=== PATIENT | female | born 1950 | race Caucasian/White ===

== ENCOUNTER → 2016-05-05 | Outpatient (CLI) | payer OTHER ==
--- NOTE | 2016-05-05 10:42 | MA ---
Bilateral Screening Digital Mammograms With iCAD Clinical Indications: Routine screening mammograms. Technique: Standard digital cephalocaudal and mediolateral oblique projections were obtained. [facility]. Comparison: 2014, 2010. Breast density: 3: 50 to 75%. Findings: Computer-aided detection was reviewed. In the left breast medial aspect approximately 9 o'c lock position, there is a focal asymmetry for which spot compression views are recommended. Right binu ast demonstrates no new dominant densities, suspicious microcalcifications, or architectural distorti on. Benign vascular calcifications in both breasts. Impression: 1. ACR BI-RADS 0: Needs further imaging. 2. Focal asymmetry in medial left breast. Recommendation: Additional diagnostic spot compression mammographic views of the left breast medial aspect and possibly ultrasound if the finding persists. [facility] will send a result letter to the patient.
--- NOTE | 2016-05-06 08:14 | DX ---
Bone Densitometry Indication: Osteoporosis. Technique: DEXA scan was performed on [employer] W Bone Densitometer. Comparison Study: March 13, 2015. Results: Lumbar Spine (L1-L4) BMD: 0.841 T-score: -1.9 Prior BMD: 0.880 Percent change: -4.4% Total Hip (Right) BMD: 0.701 T-score: -2.0 Prior BMD: 0.721 Percent change: -2.8% Femoral Neck (Right) BMD: 0.572 T-score: -2.5 Total Hip (Left) BMD: 0.809 T-score: -1.1 Prior BMD: 0.788 Percent change: 2.7% Femoral Neck (Left) BMD: 0.644 T-score: -1.8 Forearm (Left) BMD: 0.542 T-score: -0.4 Conclusion: Osteoporosis based on the bone density of the right femoral neck. In comparison to the previous study from March 2015, there has been a significant decrease in the patient's measured BMD of the lumbar spine. There has also been a decrease in the measured BMD of the right hip, however, this change is not significant. There has been an increase in BMD of the left hi p. This change is not significant. Additional Comments: 1. By FRAX calculation, the estimated 10-year risk of any major osteoporotic fracture is 12%. The es timated 10-year risk of hip fracture is 2.7%. 2. This patient meets the National Osteoporosis Foundation guidelines for further management and mark tment of osteoporosis. 3. Consider repeating this study in 2 years or as clinically indicated. NOTE: The risk of osteoporotic fracture increases approximately two-fold for each 1.0 SD decrease in T-score. The T-score represents the standard deviations from a young normal, same sex, reference po pulation. Low bone density is not the only risk factor for fracture. Clinical factors to consider include fall risk, previous osteoporotic fracture, family history of fractures, smoking, and low body weight. Patients who have an unexpectedly low BMD may need to be evaluated for secondary causes of low bone m ineral density. In comparing the present study to a prior study, lack of a significant increase or decrease in BMD ma y signify efficacy of the patient's present treatment. Bone mineral density measurements performed with densitometers produced by different manufacturers ar e not comparable. For the most reproducible BMD measurement, subsequent exams should be performed on the same densitometer.
== END ==
LOC: BMCIMAGING 09:47
DX: Z12.31 Encounter for screening mammogram for malignant neoplasm of breast (principal); M81.0 Age-related osteoporosis without current pathological fracture
CPT/HCPCS: G0202

== ENCOUNTER → 2016-05-14 | Outpatient (CLI) | payer OTHER ==
--- NOTE | 2016-05-14 13:31 | MA ---
Diagnostic Digital Mammogram Left Breast With iCAD Analysis Reason for examination: Evaluate possible developing asymmetry noted in the mid posterior left breast on the screening study May 05, 2016. Technique: Oblique and craniocaudal spot compression views are obtained. Also, a true lateral is perf ormed. The examination is processed by the iCAD computer-aided detection system. Comparison to older studies dating back to July 2010. Findings: The abnormality does not persist on diagnostic evaluation and it was probably related to sanchez perimposition of normal glandular elements on the screening study. The appearance of the left breast on diagnostic assessment is unchanged compared to the older studies. Vascular calcifications are noted. Impression: Negative diagnostic mammography. BI-RADS: 1. Recommendation: Resume routine mammographic screening in one year as long as physical examination is negative. A verbal report was given to the patient. [facility] with send a result letter.
== END ==
LOC: BMCIMAGING 12:49
PROVIDERS: ATTEND Internal Medicine
DX: Z03.89 Encounter for observation for other suspected diseases and conditions ruled out (principal)
CPT/HCPCS: G0206

== ENCOUNTER → 2017-12-22 | Outpatient (CLI) | payer OTHER | LOC: FIMAGING 14:33 | PROVIDERS: ATTEND Radiology Diagnostic Radiology | DX: Z01.818 Encounter for other preprocedural examination (principal); I83.90 Asymptomatic varicose veins of unspecified lower extremity ==

== ENCOUNTER → 2018-02-14 | Outpatient (CLI) | payer OTHER | LOC: BMCIMAGING 10:02 | PROVIDERS: ATTEND Internal Medicine | DX: N60.12 Diffuse cystic mastopathy of left breast (principal) ==

== ENCOUNTER 2018-03-18 11:04 | Day surgery (SDC) | payer OTHER ==
--- NOTE | 2018-03-18 12:27 | PDGENHP ---
History & Physical Chief Complaint: BILATERAL VARICOSE VEINS History of Present Illness: PAIN AND SWELLING Pertinent Past, Social, Family History: NON SMOKER Relevant Physical Exam: NO PAIN. Cardiorespiratory Assessment: RRR, CTA
--- NOTE | 2018-03-18 12:27 | PDPROPOC ---
Sedation Plan of Care Sedation Plan of Care: vital signs stable, mental status noted, patient educated of risks, benefits, alternatives, patient can tolerate sedation ASA Classification: ASA 2 Planned drugs: fentanyl, midazolam Mallampati Score: Class 1 Mallampati Reference Image: Patient passed 3-3-2 rule?: Yes
[2018-03-18] MEDS ORDERED: NS 1,000 ML IV ONE (12:34)
[2018-03-18] MEDS ORDERED: NALOXONE HCL 0.4 MG/ML INJ IVP PRN (12:34)
[2018-03-18] MEDS ORDERED: FLUMAZENIL 0.5 MG/5 ML MDV IVP PRN (12:34)
[2018-03-18] MEDS ORDERED: ceFAZolin 2 GM/DEXTROSE 100 ML IV ONE (12:34)
[2018-03-18] MEDS ORDERED: fentaNYL 100 MCG/2 ML INJ IVP PRN (12:34)
[2018-03-18] MEDS ORDERED: ONDANSETRON 4 MG/2 ML VIAL IVP ONE (12:34)
[2018-03-18] MEDS ORDERED: MIDAZOLAM 2 MG/2 ML VIAL IVP PRN (12:34)
[2018-03-18] MEDS ORDERED: fentaNYL 100 MCG/2 ML INJ ONE ×2 (12:40→13:45)
[2018-03-18] MEDS ORDERED: NALOXONE HCL 0.4 MG/ML INJ ONE (12:40)
[2018-03-18] MEDS ORDERED: FLUMAZENIL 0.5 MG/5 ML MDV IVP ONE (12:40)
[2018-03-18] MEDS ORDERED: CEFAZOLIN 2 GM/DEXTROSE/100 ML BAG IV ONE (12:40)
[2018-03-18] MEDS ORDERED: MIDAZOLAM 2 MG/2 ML VIAL ONE ×2 (12:40→13:45)
[2018-03-18] MEDS ORDERED: LIDO/EPI 1% **for epidural** 30 ML SDV ONE (13:20)
[2018-03-18] MEDS ORDERED: SODIUM TETRADECYL SULFATE 3% 2 ML VIAL IV ONE (13:20)
[2018-03-18] MEDS ORDERED: HYDROCODONE/APAP 5/325 TAB PO PRN (14:40)
[2018-03-18] MEDS ORDERED: IBUPROFEN 200 MG TAB PO ONE (14:40)
[2018-03-18] MEDS ORDERED: ONDANSETRON 4 MG/2 ML VIAL IVP PRN (14:40)
[2018-03-18] MEDS ORDERED: ONDANSETRON DISINTEGRATING 4 MG TAB PO PRN (14:40)
--- NOTE | 2018-03-18 14:40 | PDRADPN ---
Radiology Procedure Note Date of Procedure: 03/18/18 Radiologist: Bernice Dominguez Anesthesia: IV Sedation Pre-op Diagnosis: RLE VARICOSE VEINS Post-op Diagnosis: SAME Indication: PAIN AND SWELLING Procedure: SCLEROTHERAPY AND PHLEBECTOMY Inf/Abcess present in the surg proc area at time of surgery?: No
[2018-03-18] MEDS ORDERED: NS 1,000 ML IV SCH (14:45)
[2018-03-18 17:58] VITALS: BP 106/65
== END 2018-03-18 17:58 | disposition home or self-care (01) ==
LOC: FIMAGING 11:04
PROVIDERS: ATTEND Radiology Diagnostic Radiology
PROC: 3E033TZ Introduction of Destructive Agent into Peripheral Vein, Percutaneous Approach (ICD-10-PCS; 2018-03-18)
PROC: 3E033TZ Introduction of Destructive Agent into Peripheral Vein, Percutaneous Approach (ICD-10-PCS; 2018-03-18)
PROC: 06DY3ZZ Extraction of Lower Vein, Percutaneous Approach (ICD-10-PCS; principal; 2018-03-18 14:45)
DX: I83.813 Varicose veins of bilateral lower extremities with pain (principal); I83.893 Varicose veins of bilateral lower extremities with other complications
CPT/HCPCS: J0690; J2250; J2310; J3010

== ENCOUNTER → 2018-05-26 | Outpatient (CLI) | payer OTHER | LOC: FIMAGING 16:19 ==

== ENCOUNTER → 2018-07-12 | Outpatient (CLI) | payer OTHER | LOC: BMCIMAGING 09:29 | PROVIDERS: ATTEND Internal Medicine Endocrinology, Diabetes & Metabolism | DX: Z13.820 Encounter for screening for osteoporosis (principal); M85.89 Other specified disorders of bone density and structure, multiple sites; Z78.0 Asymptomatic menopausal state ==